=== PATIENT | female | born 1965 | race Caucasian/White ===

== ENCOUNTER → 2016-05-06 | Outpatient (CLI) | payer BC ==
[~2016-05-06] MED LIST: ALBU1AER9 INH; ASPI81TA28 PO; BCPILLS PO; CALC500C70 PO; CETI10TA84 PO; DILT120C43 PO; FLUT0.15 NAE; GLUC1500 PO; OMEGCAP2 PO; PANT40TA PO; VALA500T60 PO
== END | disposition home or self-care (01) ==
LOC: C.LAB1850 12:58
PROVIDERS: ATTEND Obstetrics & Gynecology
DX: N91.2 Amenorrhea, unspecified (principal)

== ENCOUNTER → 2016-06-22 | Outpatient (CLI) | payer BC | END | disposition home or self-care (01) | LOC: C.PAPS 10:42 | PROVIDERS: ATTEND Obstetrics & Gynecology | DX: Z01.411 Encounter for gynecological examination (general) (routine) with abnormal findings (principal); R87.610 Atypical squamous cells of undetermined significance on cytologic smear of cervix (ASC-US) ==